=== PATIENT | male | born 1975 | race Two or more races ===

== ENCOUNTER 2020-12-26 21:45 | Emergency (ER) | payer MEDICAID ==
[~2020-12-26] VITALS: Ht 180.3 cm; Wt 106.6 kg
[2020-12-27 02:44] VITALS: BP 156/88
[2020-12-27] MEDS ORDERED: ACETAMINOPHEN 325 MG TAB PO ONE (03:15)
== END 2020-12-27 05:10 | disposition home or self-care (01) ==
LOC: ER 21:49
DX: G44.209 Tension-type headache, unspecified, not intractable (principal); R03.0 Elevated blood-pressure reading, without diagnosis of hypertension; F17.210 Nicotine dependence, cigarettes, uncomplicated
CPT/HCPCS: 70450; 93005